=== PATIENT | male | born 1975 ===

== ENCOUNTER 2016-06-04 02:15 | Emergency (ER) | payer SELFPAY ==
[2016-06-04] MEDS ORDERED: IBUPROFEN 600 MG TABLET ONE (02:35)
[2016-06-04] MEDS ORDERED: HYDROCODONE/ACETAMINOPHEN 5/325MG TABLET ONE (02:35)
[2016-06-04 02:36] LABS: SPECIFIC GRAVITY 1.025 (1.001-1.030); URINE APPEARANCE HAZY; URINE BILIRUBIN NEGATIVE (NEGATIVE); URINE BLOOD 4+ (NEGATIVE); URINE COLOR DARK YELLOW; URINE GLUCOSE (UA) NEGATIVE (NEGATIVE); URINE LEUKOCYTE ESTERASE NEGATIVE (NEGATIVE); URINE NITRITE NEGATIVE (NEGATIVE); URINE PROTEIN 1+ (NEGATIVE); URINE UROBILINOGEN NORMAL (0-1 mg/dl)
[2016-06-04 02:42] LABS: URINE BACTERIA 0; URINE EPITHELIAL CELLS FEW /hpf; URINE RBC >100 /hpf; URINE WBC 0-1 /hpf
== END 2016-06-04 03:54 | disposition home or self-care (01) ==
LOC: ED 02:15
DX: N23 Unspecified renal colic (principal); Z87.442 Personal history of urinary calculi; F17.210 Nicotine dependence, cigarettes, uncomplicated
CPT/HCPCS: 81001; 99283 ×2; A9270 ×2